=== PATIENT | male | born 1985 | race Caucasian/White ===

== ENCOUNTER 2019-08-11 21:53 | Inpatient (IN) | payer SELFPAY ==
[~2019-08-11] VITALS: Ht 182.9 cm; Wt 93.6 kg
[2019-08-11 22:05] VITALS: Ht 182.9 cm; Wt 93.6 kg
[2019-08-11 23:02] LABS: BASOPHIL % 0.2 % (0-2); PLATELET COUNT 317 x10^3mcL (130-400); RED CELL DISTRIBUTION WIDTH 13.6 % (11.5-14.5)
[2019-08-11 23:16] LABS: CALCIUM 8.8 mg/dL (8.5-10.1); CARBON DIOXIDE 27.5 mmol/L (21-32); CHLORIDE SERUM 103 mmol/L (98-107); CREATININE SERUM 1.1 mg/dL (0.7-1.3); GFR1 > 60 mL/min; GLUCOSE SERUM 172 mg/dL (74-106); SODIUM SERUM 141 mmol/L (136-145)
[2019-08-11 23:20] LABS: ALBUMIN 4.5 g/dL (3.4-5.0); ALKALINE PHOSPHATASE 79 U/L (46-116); ALT/SGPT 37 U/L (16-63); AST/SGOT 21 U/L (15-37); BILIRUBIN TOTAL 0.6 mg/dL (0.20-1.00); LIPASE 71 IU/L (73-393); TOTAL PROTEIN, SERUM 7.9 g/dL (6.4-8.2)
[2019-08-12 04:29] VITALS: BP 116/63
[2019-08-12 06:35] LABS: PLATELET COUNT 262 x10^3mcL (130-400); RED CELL DISTRIBUTION WIDTH 13.7 % (11.5-14.5)
[2019-08-12 06:36] LABS: BASOPHIL % 0 % (0-2)
[2019-08-12 06:53] LABS: CALCIUM 8.3 mg/dL (8.5-10.1); CHLORIDE SERUM 107 mmol/L (98-107); CREATININE SERUM 0.9 mg/dL (0.7-1.3); GFR1 > 60 mL/min; GLUCOSE SERUM 112 mg/dL (74-106); POTASSIUM SERUM 4.6 mmol/L (3.5-5.1); SODIUM SERUM 143 mmol/L (136-145)
[2019-08-12 08:07] VITALS: BP 112/53
[2019-08-12] MEDS ORDERED: ONDANSETRON4 M3 PO (10:49)
[2019-08-12 12:13] VITALS: BP 105/64
[2019-08-12 13:02] VITALS: BP 112/53
[2019-08-12 13:42] LABS: microscopic required? NO
[2019-08-12 13:45] LABS: urine erythrocyte NEGATIVE (NEGATIVE)
[2019-08-12 14:04] LABS: AMPHETAMINE QUAL UR NONE DETECTED (See below)
[2019-08-12 18:49] LABS: AMPHETAMINE QUAL UR NONE DETECTED (See below)
== END 2019-08-12 15:57 | disposition home or self-care (01) | DRG 392 ==
LOC: ED 21:53 → MU 08-12 01:50 → DU 08-12 03:39
PROVIDERS: Emergency Medicine; ADMIT Family Medicine
DX: A08.4 Viral intestinal infection, unspecified (principal); E87.2 Acidosis; F12.988 Cannabis use, unspecified with other cannabis-induced disorder; D72.829 Elevated white blood cell count, unspecified; F43.8 Other reactions to severe stress; R19.7 Diarrhea, unspecified; K29.70 Gastritis, unspecified, without bleeding
CPT/HCPCS: C9113; G0378; J2270; J2405; J3010; J7030; Q0092